=== PATIENT | male | born 1955 | race Caucasian/White ===

== ENCOUNTER 2017-11-25 07:45 | Outpatient (CLI) | payer OTHER | END 2017-11-25 07:46 | disposition home or self-care (01) | LOC: BICULT 07:45 | PROVIDERS: ATTEND Family Medicine | DX: R63.4 Abnormal weight loss (principal) | CPT/HCPCS: 76700 ==

== ENCOUNTER 2017-12-02 10:24 | Day surgery (SDC) | payer OTHER ==
[2017-12-01 14:41] VITALS: BMI 19.0
--- NOTE | 2017-12-01 22:51 | HP ---
DATE OF ADMISSION: 12/02/2017 HISTORY OF PRESENT ILLNESS: This is a 62-year-old male referred to me for unexplained weight loss. The patient has weighed 156 pounds a few months ago and his weight is down to 136 pounds in the last couple of months. The patient has good appetite and eats very well. He has no abdominal pain, no n ausea or vomiting. No history of dysphagia. No history of fever, night sweats. The patient has had a colonoscopy in 2010 and had 2 polyps removed. The patient was advised to come back for a followup colonoscopy, but patient did not come back to me. The patient comes in for EGD and a colonoscopy, b ecause of unexplained weight loss and also history of colon polyp. ALLERGIES: PENICILLIN. SOCIAL HISTORY: The patient smokes one-half packet of cigarettes per day. He drinks a glass of wine nightly. PAST MEDICAL HISTORY: 1. Chronic low back pain. 2. Mild dementia. 3. Colon polyp. 4. Cataracts. 5. Prostatic hypertrophy. 6. Hyperlipidemia. PHYSICAL EXAMINATION: GENERAL: Appears comfortable. VITAL SIGNS: Pulse is 70, blood pressure 120/70. HEENT: Conjunctivae clear. CARDIOVASCULAR AND LUNGS: Within normal limits. ABDOMEN: Soft to palpate. Abdomen is nontender. There is no organomegaly or masses. EXTREMITIES: Reveal no edema. ADMITTING DIAGNOSES: 1. Unexplained weight loss. 2. Colon polypectomy, 2010. PLAN: EGD and colonoscopy.
--- NOTE | 2017-12-02 12:49 | OP ---
DATE OF PROCEDURE: 12/02/2017 SURGEON: Fortino Layton M.D. OPERATIVE PROCEDURE: Colonoscopy with biopsy. PREOPERATIVE DIAGNOSES: A 62-year-old male with a history of colon polyps, presents with w eight loss of unknown etiology. The patient undergoing colonoscopy. POSTOPERATIVE DIAGNOSES: 1. Sessile transverse colon polyp. 2. Large hemorrhoids. 3. Tortuous, redundant colon. PROCEDURE IN DETAIL: The patient was placed on his left lateral position and was given sedation by A nesthesia Department. A rectal exam was done before the scope was advanced into the rectum. No lesi on felt on rectal exam. A Pentax video colonoscope was introduced into the rectum advanced all the w ay to the cecum. The patient has a redundant colon. The mucosa appears normal throughout the colon. The appendiceal orifice, no pathology seen. The ascending colon, hepatic flexure, and transverse c olon, no lesions seen. He did have a small polyp in the transverse colon, removed. The splenic flex ure, descending colon, and sigmoid colon, no pathology. Rectum showed large hemorrhoids.
--- NOTE | 2017-12-02 20:16 | OP ---
DATE OF PROCEDURE: 12/02/2017 OPERATIVE PROCEDURE: Esophagogastroduodenoscopy with biopsy. PREOPERATIVE DIAGNOSIS: Unexplained weight loss of 22 pounds. The patient has no specific GI symptoms. POSTOPERATIVE DIAGNOSES: 1. Irregular Z-line. 2. He has shallow ulcer in the gastric antrum which is healing. 3. Normal duodenum. PROCEDURE IN DETAIL: The patient was placed on his left lateral position after given sedation by Anesthesia Department. A Pentax video gastroscope under direct vision was passed down the oropharynx, passed the GE junction into the stomach and subsequently into the descending duodenum. The esophageal mucosa appeared normal. The Z-line was irregular. Biopsies were obtained in the area. The fundus and cardia, no pathology seen. The gastric antrum shows a shallow ulceration which is healing. The insulin angularis, no pathology seen. The duodenal bulb, descending duodenum, no pathology seen. Biopsy obtained of gastric antrum and gastric body. The stomach was decompressed and the scope removed. DISCHARGE PLANNING: This is a 62-year-old male who came for EGD and colonoscopy because of unexplained weight loss and also a history of colon polyp. EGD showed irregular Z-line and has a shallow ulcer in gastric antrum. The colonoscopy showed a small polyp over the transverse colon_. Overall, the endoscopic examination failed to show any lesion to explain the weight loss. The plan is to obtain an abdominal CAT scan in the near future. [facility]
== END 2017-12-02 13:05 | disposition home or self-care (01) ==
LOC: SDC 10:24
PROVIDERS: ATTEND Internal Medicine Gastroenterology
PROC: 0DBL8ZX Excision of Transverse Colon, Via Natural or Artificial Opening Endoscopic, Diagnostic (ICD-10-PCS; principal; 2017-12-02)
PROC: 0DB68ZX Excision of Stomach, Via Natural or Artificial Opening Endoscopic, Diagnostic (ICD-10-PCS; principal; 2017-12-02)
DX: R63.4 Abnormal weight loss (principal); K63.5 Polyp of colon; Q43.8 Other specified congenital malformations of intestine; K64.9 Unspecified hemorrhoids; K22.70 Barrett's esophagus without dysplasia; K31.9 Disease of stomach and duodenum, unspecified; M54.5 Low back pain; F17.210 Nicotine dependence, cigarettes, uncomplicated; N40.0 Benign prostatic hyperplasia without lower urinary tract symptoms; E78.5 Hyperlipidemia, unspecified; G30.9 Alzheimer's disease, unspecified; F02.80 Dementia in other diseases classified elsewhere, unspecified severity, without behavioral disturbance, psychotic disturbance, mood disturbance, and anxiety; M19.90 Unspecified osteoarthritis, unspecified site; G89.4 Chronic pain syndrome; M41.9 Scoliosis, unspecified; F41.9 Anxiety disorder, unspecified; Z79.82 Long term (current) use of aspirin; Z79.899 Other long term (current) drug therapy; Z88.0 Allergy status to penicillin; Z88.2 Allergy status to sulfonamides; Z87.19 Personal history of other diseases of the digestive system
CPT/HCPCS: 88305; 88312; 88313

== ENCOUNTER 2018-01-01 08:59 | Outpatient (CLI) | payer OTHER ==
[2018-01-01] MEDS ORDERED: Iopamidol 370 76% 100 ML VIAL ONE (14:30)
== END 2018-01-01 09:00 | disposition home or self-care (01) ==
LOC: BICCT 08:59
PROVIDERS: ATTEND Internal Medicine Gastroenterology
DX: R63.4 Abnormal weight loss (principal)
CPT/HCPCS: 74177

== ENCOUNTER 2018-05-20 14:05 | Outpatient (CLI) | payer OTHER | END 2018-05-20 14:06 | disposition home or self-care (01) | LOC: BICCT 14:05 | PROVIDERS: ATTEND Family Medicine | DX: H53.2 Diplopia (principal) | CPT/HCPCS: 70450 ==

== ENCOUNTER 2019-01-20 13:06 | Outpatient (CLI) | payer MEDICARE ==
--- NOTE | 2019-01-20 14:31 | CT ---
CT pulmonary lung scan without IV contrast INDICATION: Lung cancer screening protocol; nicotine dependence;personal history of smoking COMPARISON: None FINDINGS: LUNGS: Nodules\mass: No suspicious nodule demonstrated. Emphysema: Mild Additional findings: There is aneurysmal dilatation of the ascending aorta measuring 4.5 cm. There is aneurysmal dilatation of the aortic arch measuring 3.4 cm. There is ectasia of the descending thoracic aorta measuring 2.9 cm. There are coronary artery and thoracic aortic calcifications. Mediastinum: No lymphadenopathy. Upper abdomen: No abnormality. Osseous structures: No acute abnormality.. IMPRESSION: Lung-RADS Category 1: Negative- Continue annual screening with LDCT in 12 months. Category S: Aneurysmal dilatation of the thoracic aorta. Dedicated CTA of the thorax is recommended f or additional evaluation. Mild emphysema. Category C: Not applicable.
== END 2019-01-20 13:07 | disposition home or self-care (01) ==
LOC: CT 13:06
PROVIDERS: ATTEND Family Medicine
DX: F17.210 Nicotine dependence, cigarettes, uncomplicated (principal); I77.810 Thoracic aortic ectasia; J43.9 Emphysema, unspecified
CPT/HCPCS: G0297

== ENCOUNTER 2019-02-07 14:58 | Outpatient (CLI) | payer MEDICARE ==
--- NOTE | 2019-02-07 16:53 | MRI ---
MRI Upper Ext Jt Rt WO Con History: [m25.511 acute pain of right shoulder.] Comparison: None. Findings: Biceps tendon: No normal intra-articular biceps tendon is appreciated. Intertubercular groo ve appears vacant. Labrum: High-grade tearing of the superior labrum as well as tear extending to the anterior superior and posterior superior labrum. Rotator cuff: Full-thickness full width subscapularis tendon tear of the footprint retracted medial t o the glenohumeral joint. There is thinning and attenuation of the supraspinatus tendon without a full-thickness rupture. There is a full-thickness tear of the anterior margin of the supraspinatus te ndon near the tendon suture anchors measuring 5 mm in AP dimension with a 1 cm gap. Bones: Prior subacromial decompression. Normal glenoid version. Mild sclerosis of the glenoid anteroi nferiorly as well as superiorly. Muscles: Greater than 75% atrophy of the subscapularis. No significant to the supraspinatus or infraspinatus m uscles. Normal bulk of the deltoid. Soft tissues: Moderate subacromial/subdeltoid bursa effusion. Impression: 1. Full-thickness rupture the subscapularis tendon from the footprint retracted medial to the glenohu meral joint with greater than 75% atrophy. 2. Full-thickness perforation of the anterior fibers infraspinatus tendon near the tendon suture anch or measuring 5 mm in AP dimension with a 1 cm gap. Extensive superior labral tearing. 4. Absent intra-articular biceps tendon. 5. Mild elevation of the humeral head with respect to the glenoid with humeral head/neck osteophyte f ormation.
== END 2019-02-07 14:59 | disposition home or self-care (01) ==
LOC: BICMRI 14:58
PROVIDERS: ATTEND Orthopaedic Surgery
DX: M25.511 Pain in right shoulder (principal); S46.811A Strain of other muscles, fascia and tendons at shoulder and upper arm level, right arm, initial encounter; S43.431A Superior glenoid labrum lesion of right shoulder, initial encounter

== ENCOUNTER 2019-04-19 13:00 | Inpatient (IN) | payer MEDICARE ==
[2019-04-19 13:32] VITALS: BMI 18.3
[2019-04-21] MEDS ORDERED: Phenylephrine HCL 10 MG/ML VIAL ONE (06:07)
[2019-04-21] MEDS ORDERED: Lidocaine 2% Jelly 5 ML TUBE ONE (06:07)
[2019-04-21] MEDS ORDERED: Sodium Chloride 0.9% 100 ML ONE (06:27)
[2019-04-21] MEDS ORDERED: Clindamycin/D5W 600 mg/50 ml Premix Bag ONE (06:27)
[2019-04-21] MEDS ORDERED: Tranexamic Acid 1,000 MG/10 ML VIAL ONE (06:27)
[2019-04-21] MEDS ORDERED: Midazolam HCl 2 mg/2 ml Vial ONE (06:49)
[2019-04-21] MEDS ORDERED: Fentanyl 100 MCG/2 ML VIAL ONE (06:49)
[2019-04-21] MEDS ORDERED: ceFAZolin Sodium (SDC) 2 GM/100 ML BAG ONE (06:51)
[2019-04-21] MEDS ORDERED: Scopolamine 1.5 mg/72 hour Patch ONE (07:11)
[2019-04-21] MEDS ORDERED: Zolpidem Tartrate 5 MG TAB PO PRN ×2 (08:03→09:57)
[2019-04-21] MEDS ORDERED: HYDROcodone/Acetaminophen 10/325 mg Tablet PO PRN ×2 (08:03)
[2019-04-21] MEDS ORDERED: Ondansetron PF 4 MG/2 ML Vial IVP PRN ×2 (08:03→09:57)
[2019-04-21] MEDS ORDERED: Fentanyl 100 MCG/2 ML VIAL SLOW IVP PRN (08:03)
[2019-04-21] MEDS ORDERED: Promethazine HCl 25 MG/ML VIAL IM PRN (08:03)
[2019-04-21] MEDS ORDERED: Ropivacaine 0.2% 550 ML 550 ML NERVE BLCK SCH (08:03)
[2019-04-21] MEDS ORDERED: traMADol HCl 50 MG TAB PO PRN ×2 (08:03)
[2019-04-21] MEDS ORDERED: Ketorolac Tromethamine 30 MG/ML VIAL IVP PRN ×2 (08:03→12:00)
[2019-04-21] MEDS ORDERED: Acetaminophen 325 MG TAB PO PRN (09:57)
[2019-04-21] MEDS ORDERED: diphenhydrAMINE 50 MG CAP PO PRN (09:57)
[2019-04-21] MEDS ORDERED: Methocarbamol 500 MG TAB PO PRN (09:57)
[2019-04-21] MEDS ORDERED: Methocarbamol 1 GM/10 ML VIAL SLOW IVP PRN (09:57)
[2019-04-21] MEDS ORDERED: Bisacodyl 10 MG SUPP PR PRN (09:57)
[2019-04-21] MEDS ORDERED: Ondansetron ODT 4 MG TAB PO PRN (09:57)
[2019-04-21] MEDS ORDERED: Milk Of Magnesia 30 ML UDCUP PO PRN (09:57)
[2019-04-21] MEDS ORDERED: oxyCODONE/Acetaminophen 5 mg/325 mg Tablet PO PRN (09:57)
[2019-04-21] MEDS ORDERED: diphenhydrAMINE 50 MG/ML VIAL ONE (10:18)
--- NOTE | 2019-04-21 10:50 | RAD ---
EXAM: 2 views of the right shoulder HISTORY: Right shoulder arthroplasty COMPARISON: None FINDINGS: The patient is status post right shoulder arthroplasty without perihardware lucency or fra cture. Air in the soft tissues and overlying skin rose are from recent surgery.. The visualized thorax is unremarkable. IMPRESSION: Status post right shoulder arthroplasty without evidence of complication.
[2019-04-21] MEDS: Famotidine 20 MG TAB PO SCH ×2 (12:09→20:27)
[2019-04-21] MEDS: oxyCODONE/Acetaminophen 5 mg/325 mg Tablet PO PRN ×2 (13:31→20:26)
[2019-04-21] MEDS ORDERED: Vancomycin HCl 1 GM in Premix Bag 1 BAG IVPB SCH ×2 (15:00→19:00)
[2019-04-21] MEDS: CEFAZOLIN 2 GM, IV Admixture Fee-Chemo 1 UNITS in Sodium Chloride 0.9% 100 ML IVPB SCH ×2 (15:09→23:49)
[2019-04-21] MEDS ORDERED: Atorvastatin Calcium 10 MG TAB PO SCH (21:00)
[2019-04-21] MEDS ORDERED: Aspirin 81 mg Enteric Coated Tablet PO SCH (21:00)
[2019-04-21] MEDS ORDERED: Donepezil HCl 10 MG TAB PO SCH (21:00)
[2019-04-22 03:18] VITALS: TEMP 98.5
[2019-04-22 08:15] VITALS: BP 110/63
[2019-04-22] MEDS: Famotidine 20 MG TAB PO SCH (08:25)
--- NOTE | 2019-04-22 13:58 | OP ---
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 POSTOPERATIVE DIAGNOSIS: Right full-thickness subscapularis tear shoulder osteoarthritis. PROCEDURE PERFORMED: Right reverse total shoulder arthroplasty. PUBLIC SAFETY OFFICER: Deborah Foster PA-C. ANESTHESIOLOGIST: Artem Balbuena MD. ANESTHESIA: The patient received general endotracheal intubation with interscalene block. ESTIMATED BLOOD LOSS: 250 mL. IMPLANTS: A Tornier 29 mm baseplate, two locking and two nonlocking screws. A 36 mm centered lateralized sphere, stem 5A, 127.5-degree, tray 0, high offset, 9 mm poly, 9 mm C7.5 degree. ANTIBIOTICS: Ancef 2 g, vancomycin 1 g, and TXA 1 g. COMPLICATIONS: None. HISTORY OF PRESENT ILLNESS: Mr. Luis is a pleasant 63-year-old male, who presents with left shoulder pain. The patient has a previous history of a right rotator cuff repair. The patient had pain with overhead activities. MRI evidence showed a high-grade tear, near-complete tear of the subscapularis, glenohumeral arthritis, and infraspinatus tearing. I discussed with the patient given the subscap tear, his only option was a reverse shoulder arthroplasty. I discussed the risks and benefits of surgery to include pain, scar, bleeding, infection, damage to vital structures, decreased range of motion and strength, nonunion, fracture above or below stems, failure of implants long-term, notching, loss of life or limb. The patient understood the risks and benefits and elected to proceed. DESCRIPTION OF PROCEDURE: Time-out was performed designating the patient's right upper extremity as the operative site based on site, consents, and marking. After time-out, the patient had an incision to the deltopectoral interval. We took the vein and took it laterally, cauterized its feeders, came down and took a portion of the pack, came down onto the humerus after we found the space in the conjoined in the scarring underneath the deltoid. We started down on the biceps and came down, we only found a scar plane, which was almost like remnant capsule pseudoscar, but did not find any muscle attached to the patient's bare lesser tuberosity. We came into the interval, exposed the neck, brought the head into position, cut for an A cut, broached, cut down, drilled, and placed our starting opening awl. We went up to a 7 to 8 size center of the canal, used the cutting tool to cut at 20 degrees of rotation. We then cut down, removed, and broached up to a size 4 stem, placed hub cap over and we placed our Roula and Bankart in position. Did 360 degree release of the labrum, placed our baseplate at the bottom edge of the glenoid. We drilled with inferior angle. I then used the cleaning tool to clean the inferior surface of the bone being happy with exposure and overall alignment of the bone. We then opened our larger hole, placed our baseplate, drilled anterior, posterior, superiorly, and inferiorly placing our compression screws anterior and posterior and locking screws superiorly and inferiorly. We trialed and looked different baseplates, only placed a lateralized 36 mm sphere. We went back to the humerus and moved up to size 5A stem placed into position, reamed down, reduced the shoulder, had good overall range of motion without any signs of impingement. We placed a slightly larger poly with a 9 mm poly. With an abduction, external rotation, and a slight mid lift-off, which improved that. We placed our final implants. We placed #5 Ethibond through around the stem. We then used this scar plane to sew the tissue plane in front of the joint and also closed the rotator interval and closed in its entirety. After we washed the joint thoroughly, we used #2 Ethibonds. We closed the deltopectoral interval with #0 Vicryl, closed subcu with 2-0, and skin with rose. The patient will be elbow, wrist, and hand motion. He will be followed inhouse postop to see how he does. Job ID: [id number] [facility]
[2019-04-28] MEDS ORDERED: PATIENT'S HOME MEDICATION TOP SCH (09:00)
== END 2019-04-22 09:25 | disposition home or self-care (01) | DRG 483 ==
LOC: SURG A 04-21 05:51
PROVIDERS: ADMIT Orthopaedic Surgery; ATTEND Orthopaedic Surgery
PROC: 0RRJ00Z Replacement of Right Shoulder Joint with Reverse Ball and Socket Synthetic Substitute, Open Approach (ICD-10-PCS; principal; 2019-04-21)
DX: M19.011 Primary osteoarthritis, right shoulder (principal); M75.101 Unspecified rotator cuff tear or rupture of right shoulder, not specified as traumatic; M40.204 Unspecified kyphosis, thoracic region; I70.0 Atherosclerosis of aorta; Z88.0 Allergy status to penicillin; Z88.2 Allergy status to sulfonamides
CPT/HCPCS: 71046; 80048; 85025; 85610; 87081; 93005; 93010; A4306; J0690; J1200; J1885; J2250; J2370; J2795; J3010; J3370; J3490

== ENCOUNTER 2019-04-19 13:09 | Outpatient (CLI) | payer MEDICARE ==
[2019-04-19 14:48] LABS: #Basophils 0.1 thou/uL (0.0-0.2); #Eosinphils 0.1 thou/uL (0.0-0.7); #Lymphocytes 1.5 thou/uL (1.20-3.40); #Monocytes 0.5 thou/uL (0.11-0.59); #Neutrophils 3.7 thou/uL (1.40-6.50); %Basophils 1.2 % (0.0-1.0); %Eosinophils 1.6 % (0.0-10.0); %Lymphocytes 26.1 % (21.0-51.0); %Monocytes 7.9 % (0.0-10.0); %Neutrophils 63.4 % (42.0-75.0); Hemoglobin 12.8 g/dL (14.0-18.0); Mean Corpuscular HGB CONC 32.2 g/dL (32.0-36.0); Mean Corpuscular Volume 99.5 fL (78.0-98.0); Mean Platelet Volume 8.1 fL (7.4-10.4); Platelet Count 208 thou/uL (130-400); RBC Distribution Width 11.1 % (11.5-14.5); Red Blood Cell (RBC) Count 4.01 mill/uL (4.70-6.10); White Blood Cell (WBC) Count 5.8 thou/uL (4.8-10.8)
[2019-04-19 14:55] LABS: Prothrombin Time 13.2 SEC (12.0-14.7)
--- NOTE | 2019-04-19 14:59 | RAD ---
EXAM: CHEST PA AND LATERAL: 04/19/19 HISTORY: Preoperative evaluation. Borderline hyperinflation. Heart size is normal. Moderate kyphosis of the thoracic spine. No confluen t pneumonia, overt edema, or pleural effusion. IMPRESSION: No acute intrathoracic disease. Mild hyperinflation and thoracic spine kyphosis. Atherosclerosis of t he aorta. No significant new process. POS: [facility]
[2019-04-19 15:07] LABS: Anion Gap 10 mmol/L (10-20); BUN (Urea Nitrogen) 28 mg/dL (8.4-25.7); Calc. Creatinine Clearance 0 mL/min (70-130); Calcium 9.7 mg/dL (7.8-10.44); Carbon Dioxide 29 mmol/L (23-31); Chloride 104 mmol/L (98-107); Estimated GFR-MDRD Greater than 90; Glucose 95 mg/dL (80-115); Potassium 4.2 mmol/L (3.5-5.1); Sodium 139 mmol/L (136-145)
--- NOTE | 2019-04-22 08:02 | EKG ---
Test Reason : Blood Pressure : / mmHG Vent. Rate : 079 BPM Atrial Rate : 079 BPM P-R Int : 186 ms QRS Dur : 092 ms QT Int : 374 ms P-R-T Axes : 058 -69 063 degrees QTc Int : 428 ms Sinus rhythm with premature atrial contractions Incomplete right bundle branch block Left anterior fascicular block Abnormal ECG When compared with ECG of 02-FEB-1995 21:14, Incomplete right bundle branch block is now Present Confirmed by DR. Selena CABRALES ([id number]) on 04/22/2019 8:01:02 AM Referred By: ALESSANDRO Confirmed By:DR. Selena CABRALES
== END 2019-04-19 13:10 | disposition home or self-care (01) ==
LOC: LABBT 13:09
PROVIDERS: ATTEND Orthopaedic Surgery
DX: Z01.818 Encounter for other preprocedural examination (principal); M75.101 Unspecified rotator cuff tear or rupture of right shoulder, not specified as traumatic; M40.204 Unspecified kyphosis, thoracic region; I70.0 Atherosclerosis of aorta
CPT/HCPCS: 71046; 80048; 85025; 85610; 87081; 93005; 93010

== ENCOUNTER 2019-09-14 08:24 | Outpatient (CLI) | payer MEDICARE ==
--- NOTE | 2019-09-14 13:53 | NM ---
Nuclear medicine Mirlande scan: DATE: 09/14/2019 HISTORY: 64-year-old male with Parkinson's disease. TECHNIQUE: Premedication with 130 mg Potassium iodide one hour prior to injection of radiopharmaceutical. 4.5 mCi of I-123 Ioflupane. 3 hours later, SPECT imaging of brain in axial plane. FINDINGS: There is symmetrical uptake in the bilateral caudate heads. There is significantly decreased uptake in the putamen bilaterally. IMPRESSION: Positive for Parkinson's.
== END 2019-09-14 08:25 | disposition home or self-care (01) ==
LOC: NM 08:24
PROVIDERS: ATTEND Psychiatry & Neurology Neurology
DX: F03.90 Unspecified dementia, unspecified severity, without behavioral disturbance, psychotic disturbance, mood disturbance, and anxiety (principal); G20 Parkinson's disease
CPT/HCPCS: 78607; A9584

== ENCOUNTER 2020-03-27 08:21 | Outpatient (CLI) | payer MEDICARE ==
--- NOTE | 2020-03-27 09:36 | CT ---
CT pulmonary lung scan without IV contrast INDICATION: Lung cancer screening protocol; 64-year-old male with history of 3 cigarettes per day and history of smoking since 27 years of age COMPARISON: Prior CT pulmonary lung scan dated January 20, 2019. FINDINGS: LUNGS: Nodules\mass: No suspicious nodule demonstrated. Emphysema: Mild Additional findings: Aneurysmal dilatation the ascending aorta is stable measuring 4.5 cm. Mild aneur ysmal dilatation of the aortic arch to 3 cm stable. There are coronary artery and thoracic aortic calcifications. Mediastinum: No lymphadenopathy. Upper abdomen: No abnormality. Osseous structures: No acute abnormality.. IMPRESSION: Lung-RADS Category 1: Negative- Continue annual screening with LDCT in 12 months. Category S: Stable ascending aortic aneurysm of 4.5 cm. Mild aneurysmal dilatation the aortic arch. C oronary artery and thoracic aortic calcifications. Mild emphysema. Category C: Not applicable.
== END 2020-03-27 08:22 | disposition home or self-care (01) ==
LOC: BICCT 08:21
PROVIDERS: ATTEND Family Medicine
DX: Z12.2 Encounter for screening for malignant neoplasm of respiratory organs (principal); F17.210 Nicotine dependence, cigarettes, uncomplicated; I71.2 Thoracic aortic aneurysm, without rupture; I70.0 Atherosclerosis of aorta; I25.10 Atherosclerotic heart disease of native coronary artery without angina pectoris; J43.9 Emphysema, unspecified
CPT/HCPCS: G0297

== ENCOUNTER 2020-11-02 14:44 | Inpatient (IN) | payer MEDICARE ==
--- NOTE | 2020-11-02 15:47 | RAD ---
3 views right shoulder: 11/02/2020 COMPARISON: None HISTORY: Shoulder pain FINDINGS: There is a shoulder arthroplasty present, stable in appearance when compared to prior radio graphs performed 10/30/2020. No widening of the acromioclavicular or coracoclavicular interspace. No displaced fracture or evidence of dislocation is seen. IMPRESSION: Stable postoperative changes as detailed above.
--- NOTE | 2020-11-02 16:50 | RAD ---
RIGHT HIP 2 VIEWS: Date: 11/02/2020 HISTORY: Injury. FINDINGS: There is a subcapital fracture on the right without significant displacement. IMPRESSION: Subcapital fracture right hip. POS: [facility]
--- NOTE | 2020-11-02 16:51 | RAD ---
RIGHT ELBOW 4 VIEWS: Date: 11/02/2020 HISTORY: Pain. FINDINGS: Joint spaces are preserved. No joint effusion. No fracture or malalignment. IMPRESSION: No radiographic abnormality of the right elbow. POS: [facility]
[2020-11-02 17:10] LABS: #Eosinphils 0.2 thou/uL (0.0-0.7); #Lymphocytes 1.2 thou/uL (1.20-3.40); #Monocytes 0.8 thou/uL (0.11-0.59); #Neutrophils 6.5 thou/uL (1.40-6.50); %Basophils 0.4 % (0.0-1.0); %Eosinophils 1.8 % (0.0-10.0); %Lymphocytes 13.5 % (21.0-51.0); %Monocytes 9.1 % (0.0-10.0); %Neutrophils 75.2 % (42.0-75.0); Hemoglobin 12.2 g/dL (14.0-18.0); Mean Corpuscular Hemoglobin 32.8 pg (27.0-31.0); Mean Corpuscular Volume 99.4 fL (78.0-98.0); Platelet Count 186 thou/uL (130-400); RBC Distribution Width 10.8 % (11.5-14.5); Red Blood Cell (RBC) Count 3.72 mill/uL (4.70-6.10); White Blood Cell (WBC) Count 8.7 thou/uL (4.8-10.8)
[2020-11-02] MEDS ORDERED: Tobramycin Sulfate 1.2 GM VIAL ONE (17:37)
[2020-11-02 17:38] LABS: Anion Gap 10 mmol/L (10-20); BUN (Urea Nitrogen) 26 mg/dL (8.4-25.7); Calc. Creatinine Clearance 0 mL/min (70-130); Calcium 9.1 mg/dL (7.8-10.44); Carbon Dioxide 29 mmol/L (23-31); Chloride 108 mmol/L (98-107); Glucose 98 mg/dL (80-115); Magnesium 2.2 mg/dL (1.6-2.6); Phosphorus 2.8 mg/dL (2.3-4.7); Potassium 4.9 mmol/L (3.5-5.1); Sodium 142 mmol/L (136-145)
--- NOTE | 2020-11-02 17:38 | CON ---
DATE OF CONSULTATION: 11/02/2020 This is Deborah Foster PA-C dictating a report for Pramod Pink MD. REQUESTING PHYSICIAN: Oskar Wolf MD CONSULTING PHYSICIAN: Pramod Pink MD REASON FOR CONSULTATION: Fall with right hip fracture. HISTORY OF PRESENT ILLNESS: This is a 65-year-old male, who was in Dr. Lynch's office this morning, receiving spinal ablation when he went to use the bathroom and fell. He then was able to get up and go home from the doctor's office. Upon returning home, he was experiencing increasing pain to the right hip and the inability to walk. They presented to our emergency facility for further evaluation of hip pain as well as right elbow and right shoulder pain. Workup in the emergency department revealed a right subcapital fracture. We have been consulted for this reason. The patient is well known to our service. He states that he also has right shoulder pain. He has had a total shoulder replacement done on the right. He states he has been having some pain lately and has seen Dr. Pink recently in the clinic. He reports his pain is about the same as it has been in the last couple of weeks. He denies any numbness or tingling. PAST MEDICAL HISTORY: Significant for; 1. Parkinson's. 2. Early dementia. 3. Chronic back pain. 4. . 5. Aortic aneurysm. 6. Nam's esophagus. PAST SURGICAL HISTORY: 1. Back surgery. 2. Spinal fusion. 3. Right shoulder replacement. 4. Spinal ablation. SOCIAL HISTORY: The patient lives at home with his . He smokes approximately 2 cigarettes a day. Denies any drug use. Drinks socially. He is an independent ambulator. ALLERGIES: PENICILLINS AND SULFA. REVIEW OF SYSTEMS: Ten-point review of systems conducted and otherwise negative except for stated above. PHYSICAL EXAMINATION: VITAL SIGNS: Shows current vital signs including a blood pressure of 104/69, pulse of 69, respiratory rate of 17, temperature 98.1, pain level of 6/10, O2 saturation of 100% on room air. GENERAL: The patient is awake and alert. He is in no apparent distress. His is present at bedside here in the emergency department. He answers all questions appropriately. HEENT: Head is normocephalic and atraumatic. NECK: Supple. Trachea midline. Breathing is nonlabored. EXTREMITIES: Evaluation of the right upper extremity shows a well-healed anterior shoulder scar. There is no obvious deformity to the shoulder. No tenderness to palpation. He is able to forward flex. He is also able to flex and extend at the elbow and pronate and supinate. No signs of trauma or deformity to the elbow. Distal neurovascular status intact on the right upper extremity. On the right lower extremity, there is no shortening or external rotation noted on exam today. Skin is intact overlying the hip. Range of motion evaluation not assessed secondary to current pain status. The patient is able to move his toes and his ankle. Distal neurovascular status intact on the right lower extremity. Left upper and left lower extremities both evaluated and no signs of trauma or deformity. He is able to move these extremities without any difficulty. RADIOGRAPHIC IMAGING: Reviewed today including views of the patient's right hip demonstrate a subcapital femoral neck fracture with slight impaction and valgus deformity. Right elbow and right shoulder films also reviewed. Right elbow films show no acute findings. Right shoulder films show evidence of a shoulder arthroplasty. This is a total shoulder. No signs of periprosthetic fracture and no evidence for dislocation. ASSESSMENT: Status post fall with right subcapital femoral neck fracture. PLAN: At this time, the patient states he ate around 11:00 a.m. today. We will get him admitted to the Trauma Service. They will make sure he is comfortable overnight, we will plan for surgery in the morning. He will be n.p.o. after midnight. Surgery will include a partial versus a total hip replacement. Dr. Pink will discuss this further with the patient and his family in the morning. They do understand the risks and benefits of either procedure. They are amenable to this plan of care. We will plan to proceed in the morning. Job ID: [id number]
[2020-11-02] MEDS ORDERED: Dextrose 50% Abboject 50 ML SYRINGE SLOW IVP PRN (18:00)
[2020-11-02] MEDS ORDERED: Ondansetron PF 4 MG/2 ML Vial IVP PRN (18:00)
[2020-11-02] MEDS ORDERED: Ondansetron ODT 4 MG TAB PO PRN (18:00)
[2020-11-02] MEDS ORDERED: traMADol HCl 50 MG TAB PO PRN ×2 (18:00)
[2020-11-02] MEDS ORDERED: Morphine 2 MG/ML VIAL SLOW IVP PRN (18:00)
[2020-11-02] MEDS ORDERED: Dextrose 5% in Water 1,000 ML IV PRN (18:00)
[2020-11-02] MEDS ORDERED: Cyclobenzaprine 10 MG TAB PO PRN (18:00)
[2020-11-02] MEDS ORDERED: hydrALAZINE 20 MG/ML VIAL SLOW IVP PRN (18:00)
--- NOTE | 2020-11-02 18:06 | PDOC.H&P ---
- History & Physical Encounter Time: 11/02/20 Encounter Time: 18:04 CC: Right hip pain HPI 65 y/o male with pmhx dementia, Parkinson and HLD was at his orthopedic office this morning for a spinal ablation. The patient got up to use the bathroom at 10:00am. He lost his balance and fell down and landed on the right hip and head. The patient drove home, he found it difficult to walk. His drove him into the hospital. He states his right shoulder and right elbow pain have gradually decreased but his right hip pain is severe and not going away. He is not able to walk normally at this time. Patient denies headache, dizziness, light sensitivity ROS Patient denies SOB, chest pain, Pmhx Parkinson, Dementia, Chronic descending aortic aneurysm Medication carbidopa-levodopa 25 mg-100 mg,onepezil Strength - 10 mg ,memantine Strength - 10 mg ,Butrans Strength - 10 mcg/hour,oxyCODONE,Strength - 5 mg-325 mg :atorvastatin 10 mg ,omeprazoleStrength - 20 mg Allergies Penicilling, sulfa Family History unknown Surgical history Right reverse shoulder repair, spinal fussion Physical Exam Vitals BP 104/69, RR 17, temp 98 pain 6/10 O@ 98 General Resting comfortably in bed Head NC/AT Tenderness to palpation over right occipital bone Lungs speaking full sentence no acute distress Cardiac: regula rate an rhythm Abdomen soft, non-tender Extremities Equal strength bilat UE. Right elbow small abrasion sensation intact upper and lower extremities.Limited ROM RLE no edema or ecchymosis over the right hip Neuro A&OX3 Assessment 65 y/o male with pmhx dementia, Parkinson and HLD ground level fall in this morning in doctors office bathroom on right hip, elbow and head. Hip x- ray subcapital fracture. CT head pending. Shoulder and elbow X-rays negative. Plan 1Admit to trauma floor 2.NPO midnight, iV fluids. OR tomorrow, 3.CT head without contrast 4Pain regimen 5 AM labs 6 PT/OT evaluate after surgery 7Dispo pending.
--- NOTE | 2020-11-02 18:51 | CT ---
CT BRAIN NONCONTRAST: DATE: 11/02/2020 HISTORY: 65-year-old male status post acute head trauma from fall FINDINGS: There is no evidence of acute intra-axial or extra-axial hemorrhage. There is no midline shift or any other mass effect. There is no extra-axial fluid collection. There is no evidence of obstructive hydrocephalus. There is a 1 cm osteolytic lesion at the right frontal bone, which is unchanged compar ed to previous CT of 05/20/2018. Calvarium is otherwise intact. IMPRESSION: No acute intracranial findings.
[2020-11-02] MEDS ORDERED: oxyCODONE/Acetaminophen 5 mg/325 mg Tablet PO PRN (20:53)
[2020-11-02 21:45] VITALS: BMI 42.0
[2020-11-02] MEDS: Acetaminophen 325 MG TAB PO SCH (21:55)
[2020-11-02] MEDS: Donepezil HCl 10 MG TAB PO SCH (21:58)
[2020-11-02] MEDS: Ibuprofen 600 MG TAB PO SCH (21:58)
[2020-11-02] MEDS: Famotidine 20 MG TAB PO SCH (21:58)
[2020-11-02] MEDS: Atorvastatin Calcium 10 MG TAB PO SCH (21:58)
[2020-11-03] MEDS: Acetaminophen 325 MG TAB PO SCH ×5 (00:06→23:16)
[2020-11-03] MEDS: Sodium Chloride 0.9% 1,000 ML IV SCH ×2 (00:06→09:16)
[2020-11-03 04:55] LABS: SARS-CoV-2 PCR by NAA Not Detected (NotDetected)
[2020-11-03 05:37] LABS: #Eosinphils 0.1 thou/uL (0.0-0.7); #Lymphocytes 1.3 thou/uL (1.20-3.40); #Monocytes 0.7 thou/uL (0.11-0.59); %Basophils 0.4 % (0.0-1.0); %Eosinophils 0.9 % (0.0-10.0); %Monocytes 8.9 % (0.0-10.0); %Neutrophils 73.8 % (42.0-75.0); Hemoglobin 11.8 g/dL (14.0-18.0); Mean Corpuscular HGB CONC 32.1 g/dL (32.0-36.0); Mean Corpuscular Hemoglobin 32.1 pg (27.0-31.0); Mean Platelet Volume 7.9 fL (7.4-10.4); Platelet Count 188 thou/uL (130-400); RBC Distribution Width 10.9 % (11.5-14.5); Red Blood Cell (RBC) Count 3.67 mill/uL (4.70-6.10); White Blood Cell (WBC) Count 8.1 thou/uL (4.8-10.8)
[2020-11-03] MEDS: Ibuprofen 600 MG TAB PO SCH ×3 (06:02→20:34)
[2020-11-03] MEDS: Carbidopa/Levodopa 25-100 mg Tablet PO SCH ×4 (06:02→20:34)
[2020-11-03 06:03] LABS: Phosphorus 2.9 mg/dL (2.3-4.7)
[2020-11-03 06:07] LABS: Anion Gap 13 mmol/L (10-20); BUN (Urea Nitrogen) 23 mg/dL (8.4-25.7); Calc. Creatinine Clearance 187 mL/min (70-130); Calcium 8.6 mg/dL (7.8-10.44); Carbon Dioxide 25 mmol/L (23-31); Chloride 108 mmol/L (98-107); Glucose 94 mg/dL (80-115); Potassium 4.2 mmol/L (3.5-5.1); Sodium 142 mmol/L (136-145)
[2020-11-03] MEDS ORDERED: Tobramycin Sulfate 1.2 GM VIAL ONE (08:00)
[2020-11-03] MEDS: Famotidine 20 MG TAB PO SCH ×3 (09:16→20:35)
[2020-11-03] MEDS ORDERED: Tranexamic Acid 1,000 MG/10 ML VIAL ONE (09:58)
[2020-11-03] MEDS ORDERED: Sodium Chloride 0.9% 100 ML ONE (09:58)
[2020-11-03] MEDS ORDERED: Fentanyl 100 MCG/2 ML VIAL ONE ×2 (10:17→12:43)
[2020-11-03] MEDS ORDERED: Rocuronium Bromide 10 MG/ML (10ML VIAL) ONE (10:59)
[2020-11-03] MEDS ORDERED: PHENYLEPHRINE-NS 100 MCG/ML 10 ML SYRINGE ONE (10:59)
[2020-11-03] MEDS ORDERED: Ketorolac Tromethamine 30 MG/ML VIAL ONE (10:59)
[2020-11-03] MEDS ORDERED: Dexamethasone 20 MG/5 ML VIAL ONE (10:59)
[2020-11-03] MEDS ORDERED: ePHEDrine 50 MG/ML VIAL ONE (10:59)
[2020-11-03] MEDS ORDERED: Lidocaine 1% PF 5 ML VIAL ONE (10:59)
[2020-11-03] MEDS ORDERED: Glycopyrrolate 0.2 MG/ML 5 ML SYRINGE ONE (10:59)
[2020-11-03] MEDS ORDERED: PROPOFOL 200 MG/20 ML VIAL ONE (10:59)
[2020-11-03] MEDS ORDERED: Ondansetron PF 4 MG/2 ML Vial ONE (10:59)
[2020-11-03] MEDS ORDERED: SUGAMMADEX SODIUM 200 MG/2 ML VIAL ONE (12:29)
[2020-11-03] MEDS ORDERED: PACU-Morphine 4MG/ML VIAL SLOW IVP PRN (13:04)
[2020-11-03] MEDS ORDERED: HYDROmorphone 2 MG/ML VIAL SLOW IVP PRN (13:04)
[2020-11-03] MEDS ORDERED: Promethazine HCl 25 MG/ML VIAL IM PRN (13:04)
[2020-11-03] MEDS ORDERED: Ondansetron HCl/PF 4 MG/2 ML Vial IVP PRN (13:04)
[2020-11-03] MEDS ORDERED: HYDROmorphone 0.5 MG/0.5 ML SYRINGE ONE (13:05)
--- NOTE | 2020-11-03 13:30 | OP ---
DATE OF PROCEDURE: 11/03/2020 PREOPERATIVE DIAGNOSIS: Right femoral neck fracture. POSTOPERATIVE DIAGNOSIS: Right femoral neck fracture. PROCEDURE PERFORMED: Right hip hemiarthroplasty. ACCORDION REPAIRER: Rafael Lloyd PA-C ANESTHESIA: The patient received general. ESTIMATED BLOOD LOSS: Less than 100 mL. TOURNIQUET TIME: Zero. ANTIBIOTICS: Ancef 2 g, TXA 1 g. IMPLANTS: The patient had a size 5 accolade II neck stem, a 53 Unitrax head of prosthesis and a standard neck adjustment sleeve. COMPLICATIONS: None. HISTORY OF PRESENT ILLNESS: Mr. Luis is a 65-year-old male, who presents after a fall with right femoral neck fracture. The patient has Parkinson's. The patient is dealing with decrease in mobility and has a history of chronic pain, and I discussed with the family the risks and benefits of right hip hemiarthroplasty. I have discussed hemiarthroplasty versus total hip. I discussed the risks and benefits of both. The patient elected for right hip hemiarthroplasty. I discussed with him the risks and benefits of the surgery to include pain, scar, bleeding, infection, damage to vital structures, decreased range of motion and strength, continued pain despite surgical intervention, need for further surgeries, further procedures, fracture above or below the stem, loss of life or limb, The patient understood the risks and benefits of the procedure and elected to proceed. DESCRIPTION OF PROCEDURE: Time-out was performed designating the right lower extremity as the operative site based on site marking. The patient was placed in lateral position with bony prominences well padded, had a lateral incision down through skin, down to the IT band. The gluteus medius and minimus were peeled to expose the patient's femoral neck. We T'd the capsule, exposed the femoral neck, dislocated the neck, cut our neck and placed our corkscrew into the femoral head, removed the femoral head and sized it to 53. We then began broaching, broached up to a size 5, reduced, had a good overall reduction and position of the stem. We then removed the stem, washed, placed our final #[address] with our Unitrax standard [address] The patient was in good position in overall alignment and reduction. We then closed using #5 passed through bone tunnels and sewed the gluteus medius and minimus back. Closed #2 and closed the remainder of the tenotomy and closed the IT band with 2 Stratafix, 0 Stratafix, 2-0 Stratafix, and glue. My shop assistant helped with positioning, incision, retraction, dislocation, implantation, closure and positioning to the bed. The patient will be weightbearing as tolerated. The patient will follow up with me after 24-hour antibiotics may need to skilled upon discharge. Job ID: [id number] [facility]
[2020-11-03] MEDS: CEFAZOLIN 2 GM in Premix Bag 1 BAG IVPB SCH (18:02)
[2020-11-03] MEDS: Donepezil HCl 10 MG TAB PO SCH (20:34)
[2020-11-03] MEDS: Atorvastatin Calcium 10 MG TAB PO SCH (20:34)
[2020-11-04] MEDS: CEFAZOLIN 2 GM in Premix Bag 1 BAG IVPB SCH (03:10)
[2020-11-04] MEDS: oxyCODONE/Acetaminophen 5 mg/325 mg Tablet PO PRN ×2 (04:50→20:16)
[2020-11-04] MEDS: Ibuprofen 600 MG TAB PO SCH ×3 (05:17→22:01)
[2020-11-04] MEDS: Acetaminophen 325 MG TAB PO SCH ×3 (05:17→18:25)
[2020-11-04] MEDS: Carbidopa/Levodopa 25-100 mg Tablet PO SCH ×4 (05:18→20:16)
[2020-11-04 06:10] LABS: #Lymphocytes 1.4 thou/uL (1.20-3.40); #Monocytes 1.1 thou/uL (0.11-0.59); #Neutrophils 9.4 thou/uL (1.40-6.50); %Basophils 0.3 % (0.0-1.0); %Lymphocytes 11.4 % (21.0-51.0); %Neutrophils 79.2 % (42.0-75.0); Hemoglobin 10.5 g/dL (14.0-18.0); Mean Corpuscular HGB CONC 33.2 g/dL (32.0-36.0); Mean Corpuscular Hemoglobin 32.8 pg (27.0-31.0); Mean Platelet Volume 7.9 fL (7.4-10.4); Platelet Count 171 thou/uL (130-400); RBC Distribution Width 10.7 % (11.5-14.5); White Blood Cell (WBC) Count 11.9 thou/uL (4.8-10.8)
[2020-11-04] MEDS: Famotidine 20 MG TAB PO SCH ×2 (08:58→20:16)
[2020-11-04] MEDS: Polyethylene Glycol 3350 17 GM Packet PO SCH (08:59)
[2020-11-04] MEDS: Senokot S 8.6-50 MG TAB PO SCH ×2 (08:59→20:16)
--- NOTE | 2020-11-04 09:14 | PRG ---
DATE OF SERVICE: 11/03/2020 HISTORY OF PRESENT ILLNESS: Mr. Leandro Luis is a pleasant 65-year-old male with history of Parkinson's, well known to my service, previous right shoulder replacement. The patient is currently in bed after ground level fall yesterday. The patient is currently resting in bed. His is at bedside. PHYSICAL EXAMINATION: VITAL SIGNS: 97.5, 82, 18, 97%, 107/61. GENERAL: Alert and oriented male, in no acute distress. Rigidity noted. EXTREMITIES: The patient has pain with internal and external rotation of his hip. He will dorsiflex, plantar flex, and has gross sensation intact to his right lower extremity. RADIOGRAPHS: 1. Show right subcapital femoral neck fracture and valgus impaction. 2. Right elbow x-rays are negative. Right shoulder shows no changes. IMPRESSION: Right subcapital femoral neck fracture. ASSESSMENT AND PLAN: I discussed with the family risks and benefits of hemiarthroplasty versus total hip arthroplasty. I feel like he would benefit from either procedure. I discussed the risks and benefits of both. Given the patient's ambulatory status and his current diagnosis of Parkinson's, I felt like the hemiarthroplasty was the correct decision. Patient and family discussed and elected for right hemiarthroplasty. The patient will be taken to the OR for a hemiarthroplasty, will receive TXA. We discussed risks and benefits including life and limb, discussed risk of fracture, damage to vital structures. The patient and family understand these risks and benefits and elected to proceed. He will be taken to the operating suite for right hemiarthroplasty. Job ID: [id number]
--- NOTE | 2020-11-04 11:18 | RAD ---
AP PELVIS AND RIGHT HIP 1 VIEW: Date: 11/04/2020 HISTORY: Postop. FINDINGS/IMPRESSION: There are recent postop changes of right hip arthroplasty in good position and alignment, new since 0 11/02/2020. POS: OFF
--- NOTE | 2020-11-04 12:35 | PRG ---
DATE OF SERVICE: 11/04/2020 SUBJECTIVE: The patient is hospital day 2 status post ground level fall. He is postop day 1, status post right hip hemiarthroplasty. Overnight, the patient partially pulled his Marquez catheter out. The nurses were able to return it. They did notice some hematuria initially, and again this morning, there was noted to be some hematuria, though it was much less. The patient reports no difficulty urinating at this time. He is tolerating a diet and his pain is controlled. At the time of my visit, he was starting to work with Physical Therapy. PHYSICAL EXAMINATION: VITAL SIGNS: Temperature is 98.7, heart rate 79, blood pressure 127/78, respirations 18, oxygen saturation 100% on room air. GENERAL: The patient is resting comfortably in bed. Again, he is just started his evaluation by physical therapy. He is awake, alert, conversant, appropriate. [place] Coma Scale is 15. HEENT: Unremarkable. LUNGS: Clear to auscultation with good inspiratory and expiratory effort. HEART: Regular rate and rhythm. ABDOMEN: Soft, nontender with active bowel sounds. EXTREMITIES: Neurovascularly intact x4. LABORATORY FINDINGS: The last lab value should be platelets of 171. RADIOGRAPHS: There are no radiographs reviewed this morning. ASSESSMENT AND PLAN: 1. Status post ground level fall hospital day 2. 2. Status post right hip hemiarthroplasty, postop day 1. 3. Status post dislodged Marquez accidentally by the patient resulting in hematuria, improving. 4. History of Parkinson's. PLAN: Plan will be to continue supportive care. Encourage physical and occupational therapy. The patient's home regimen for his chronic pain has been resumed, which he reports is helped immensely. We will continue to monitor his urine output and quality. We will notify Urology as needed. We have also discussed with the patient and his spouse placement. Job ID: [id number]
[2020-11-04] MEDS: Atorvastatin Calcium 10 MG TAB PO SCH (20:16)
[2020-11-04] MEDS: Donepezil HCl 10 MG TAB PO SCH (20:16)
[2020-11-05] MEDS: Acetaminophen 325 MG TAB PO SCH ×4 (05:43→17:17)
[2020-11-05] MEDS: Ibuprofen 600 MG TAB PO SCH ×3 (05:48→22:25)
[2020-11-05] MEDS: Carbidopa/Levodopa 25-100 mg Tablet PO SCH ×4 (05:48→20:18)
[2020-11-05] MEDS ORDERED: Enoxaparin Sodium 40 MG/0.4 ML SYRINGE SC SCH (09:00)
[2020-11-05] MEDS: Famotidine 20 MG TAB PO SCH ×2 (10:12→20:20)
[2020-11-05] MEDS: Polyethylene Glycol 3350 17 GM Packet PO SCH (10:12)
[2020-11-05] MEDS: Senokot S 8.6-50 MG TAB PO SCH ×2 (10:13→20:20)
[2020-11-05] MEDS: oxyCODONE/Acetaminophen 5 mg/325 mg Tablet PO PRN ×2 (15:11→22:25)
[2020-11-05] MEDS: BUPRENORPHINE TOP SCH (17:17)
[2020-11-05] MEDS: Donepezil HCl 10 MG TAB PO SCH (20:18)
[2020-11-05] MEDS: Atorvastatin Calcium 10 MG TAB PO SCH (20:19)
[2020-11-05] MEDS: Aspirin 81 mg Enteric Coated Tablet PO SCH (20:20)
--- NOTE | 2020-11-05 20:24 | RAD ---
2 views of the pelvis: 11/05/2020 COMPARISON: 11/04/2020 HISTORY: Fall FINDINGS: There is a stable right hip arthroplasty. The pelvic ring appears intact. There is no widen ing of the sacroiliac joints or the pubic symphysis. No acute fracture or dislocation. IMPRESSION: No acute osseous abnormality.
[2020-11-06] MEDS: Acetaminophen 325 MG TAB PO SCH ×4 (01:11→20:07)
[2020-11-06] MEDS: Carbidopa/Levodopa 25-100 mg Tablet PO SCH ×4 (05:12→21:22)
[2020-11-06] MEDS: Ibuprofen 600 MG TAB PO SCH ×3 (05:12→21:22)
--- NOTE | 2020-11-06 05:53 | PRG ---
DATE OF SERVICE: 11/05/2020 SUBJECTIVE: The patient is hospital day 3, status post ground level fall. He is postop day 2, status post right hip hemiarthroplasty. Overnight, the patient had no reported events. He is tolerating a diet and his pain is controlled with his regimen. He has begun to work with physical therapy well. was at bedside this morning inquiring about placement options for patient. OBJECTIVE: VITAL SIGNS: Blood pressure 104/61, pulse 100, respirations 12, temperature 98.1 Fahrenheit, O2 saturation 96% on room air. GENERAL: The patient was sitting up next to bed in chair with at bedside. He is awake, alert, conversant, appropriate. HEENT: Unremarkable. LUNGS: Clear to auscultation with good inspiratory and expiratory effort. HEART: Regular rate and rhythm. ABDOMEN: Soft, nontender with active bowel sounds. EXTREMITIES: Neurovascularly intact x4. LABORATORY FINDINGS: No labs were performed today. RADIOGRAPHS: No radiographs were reviewed this morning. ASSESSMENT: 1. Status post ground level fall, hospital day 3. 2. Status post right hip hemiarthroplasty, POD 2. 3. Status post dislodged Marquez accidentally by the patient resulting in hematuria on 11/04/2020. 4. History of Parkinson's. 5. Hyperlipidemia. 6. Dementia. PLAN: Plan will be to continue supportive care. Encourage physical and occupational therapy. The patient's home regimen for chronic pain had been resumed. Discuss with the patient and spouse about placement. Case Management is to come and see the patient and today to discuss options for placement. We will recommend rehab placement at this time, pending insurance approval. Job ID: [id number] MTDD
[2020-11-06] MEDS: Senokot S 8.6-50 MG TAB PO SCH ×2 (08:44→21:21)
[2020-11-06] MEDS: Aspirin 81 mg Enteric Coated Tablet PO SCH ×2 (08:44→21:21)
[2020-11-06] MEDS: Polyethylene Glycol 3350 17 GM Packet PO SCH (08:45)
[2020-11-06 11:37] LABS: Band 2 % (5-11); Hemoglobin 10.4 g/dL (14.0-18.0); Lymphocytes 10 % (21-51); MDiff Complete? YES; Mean Corpuscular HGB CONC 33.4 g/dL (32.0-36.0); Mean Corpuscular Hemoglobin 33.5 pg (27.0-31.0); Mean Platelet Volume 7.7 fL (7.4-10.4); Monocytes 6 % (0-10); Neutrophil 81 % (42-75); Platelet Count 183 thou/uL (130-400); Polychromasia SLIGHT = 2-3 cells (100X) (0-2/hpf); RBC Distribution Width 10.8 % (11.5-14.5); White Blood Cell (WBC) Count 10.5 thou/uL (4.8-10.8)
--- NOTE | 2020-11-06 12:03 | RAD ---
PORTABLE CHEST 1 VIEW: DATE: 11/06/2020. TIME: 10:14 AM. HISTORY: Shortness of breath. COMPARISON: None. FINDINGS: The heart size is normal. The aorta is tortuous. The lungs are expanded without lobar consolidation , pneumothoraces, or pleural effusions. There are postop changes of right shoulder arthroplasty. IMPRESSION: No radiographic evidence of acute cardiopulmonary process. POS: OFF
--- NOTE | 2020-11-06 14:14 | MRI ---
MRI BRAIN WITHOUT CONTRAST: HISTORY: Declining mental mental status CORRELATION: CT scan from 11/02/2020, 05/20/2018. FINDINGS: Exam is limited due to motion artifact. No restricted diffusion is seen. The ventricular size is appropriate and the basilar cisterns are pat ent. No evidence of acute infarct, hemorrhage, midline shift or abnormal extra-axial fluid collections is seen. The visualized paranasal sinuses and mastoid air cells are well-aerated. There is T2 signal in the 1 cm osteolytic lesion of the right frontal bone seen on the CT scans of 11/02/2020 and 05/20/2018 IMPRESSION: No evidence of acute intracranial process.
--- NOTE | 2020-11-06 14:15 | PRG ---
DATE OF SERVICE: 11/06/2020 SUBJECTIVE: The patient is hospital day 4, status post ground level fall. He is postop day 3, status post right hip hemiarthroplasty. Overnight, the patient reportedly had a fall. The patient was trying to get out of bed, unsupervised when he fell. A pelvis x-ray was done after this, which showed no acute findings. was at bedside with Dr. Bee and the rest of the Trauma Team on rounds, was discussing that the patient's mental status she has been concerned that his mental status/alertness has not been what it had been in the past 3 days. Today, he is having increasing trouble swallowing and removing secretions and clearing his throat per the and has a cough which is concerning to her. Patient is tolerating p.o. diet well. OBJECTIVE: VITAL SIGNS: Blood pressure 117/81, pulse 102, respirations 16, O2 saturation 97 on room air, temperature 98.6. GENERAL: The patient was sitting in bed with at bedside. The patient is awake, alert. GCS 15 However, he does not know the president or the current year. HEENT: Unremarkable. LUNGS: Clear to auscultation. HEART: Regular rate and rhythm. ABDOMEN: Soft, nontender. Active bowel sounds. EXTREMITIES: Neurovascularly intact x4. PSYCH: Pt is conversant. He knows where he is. He knows what city we are in. LABORATORY FINDINGS: No labs were performed today. RADIOGRAPHS: No radiographs were reviewed this morning. ASSESSMENT: 1. Status post ground level fall, hospital day 4. 2. Status post right hip hemiarthroplasty, postoperative day 3: continue with current pain management 3. Parkinson's Disease: is concerned about patient's change in mental status since admission, will order brain MRI and follow up 4. Dementia: continue medications 5. Dysphagia/dysphonia: speech has been consulted for this for patient, per , patient's dysphagia has also changed upon admission. Per speech, he has not had aspiration events. Serial bedside swallows for patient if aspiration events arise. Regular texture solids, with thin liquids, and aspiration precautions 5. Hyperlipidemia: continue medications 6. Gastroesophageal reflux disease: continue medications 7. Productive cough: CTAB on PE. Order CXR and CBC pending. Dr. Bee saw patient at bedside with rest of trauma team. Plan discussed with trauma team. Job ID: [id number] [facility]
[2020-11-06] MEDS: Donepezil HCl 10 MG TAB PO SCH (21:22)
[2020-11-06] MEDS: Atorvastatin Calcium 10 MG TAB PO SCH (21:22)
[2020-11-07] MEDS: Acetaminophen 325 MG TAB PO SCH ×5 (00:08→23:51)
[2020-11-07] MEDS: Ibuprofen 600 MG TAB PO SCH ×3 (06:31→21:58)
[2020-11-07] MEDS: Carbidopa/Levodopa 25-100 mg Tablet PO SCH ×4 (06:32→19:52)
[2020-11-07] MEDS: Aspirin 81 mg Enteric Coated Tablet PO SCH ×2 (09:06→21:56)
[2020-11-07] MEDS: Polyethylene Glycol 3350 17 GM Packet PO SCH (09:06)
[2020-11-07] MEDS: Senokot S 8.6-50 MG TAB PO SCH ×2 (09:06→21:56)
--- NOTE | 2020-11-07 12:41 | PRG ---
DATE OF SERVICE: 11/07/2020 SUBJECTIVE: The patient is status post ground level fall, post op day #4, status post right hip hemiarthroplasty. Overnight, the patient had no acute events. The patient is tolerating p.o. diet well. No aspiration events were noted overnight. OBJECTIVE: VITAL SIGNS: Blood pressure 123/76, heart rate 85, temperature 97.8, respirations 14, and O2 saturation 98% on room air. GENERAL: Pt in no acute distress. GCS 15. LUNGS: Clear to auscultation. HEART: Regular rate and rhythm. No murmurs, rubs, or gallops noted. ABDOMEN: Soft, nontender. Active bowel sounds. EXTREMITIES: Neurovascular intact x4. PSYCH: The patient is conversant, watching TV. He knows where he is. He knows what city we are in. LABORATORY FINDINGS: Reviewed a complete metabolic panel today, which had no significant findings. RADIOGRAPHS: No radiographs were reviewed this morning. ASSESSMENT/PLAN: 1. Status post ground level fall, hospital day #5. 2. Status post right hip hemiarthroplasty, postop day #4. Continue with current pain management. 3. Parkinson disease. Yesterday, a brain MRI was done due to the patient's change in mental status per the . He had no acute findings. Will consult Neurology today based on concerns for mental status changes. 4. Dementia. Continue medications. 5. Dysphagia, dystonia. Speech has been consulted for the patient per . He has not had any aspiration events here If aspiration events arise, solids and thin liquids and aspiration precautions. 6. Hyperlipidemia. Continue medications. 7. Gastroesophageal reflux disease. Continue medication. Patient seen by Dr. Bee and rest of trauma team. Plan discussed with team. [facility] ID: [id number] [facility]
--- NOTE | 2020-11-07 13:02 | CON ---
NEUROLOGY CONSULTATION DATE OF CONSULTATION: 11/05/2020 REASON FOR CONSULTATION: Altered mental status. HISTORY OF PRESENT ILLNESS: Mr. Luis is a 65-year-old male with medical history significant for dementia, Parkinson disease, hyperlipidemia, consulted for increased confusion from baseline after surgery. He was seen at Orthopedic office on 11/02/2020 for spinal ablation. The patient got up in the morning of 11/02/2020 and lost his balance and landed on his right hip and hit his head. He has problem walking, so he presented to the emergency room and surgery was done. Per patient's , since the surgery, he has increased agitation and his memory is worse than the baseline. REVIEW OF SYSTEMS: Unobtainable due to the patient's mental status. PAST MEDICAL HISTORY: 1. Parkinson's. 2. Dementia. 3. Chronic descending aortic aneurysm. FAMILY HISTORY: No significant family history. PAST SURGICAL HISTORY: 1. Right reverse shoulder repair. 2. Spinal fusion. ALLERGIES: PENICILLIN AND SULFA. MEDICATIONS: 1. Carbidopa/levodopa 25 mg/100 mg. 2. Donepezil. 3. Memantine. 4. Butrans. 5. Oxycodone. 6. Omeprazole. 7. Atorvastatin. PHYSICAL EXAMINATION: VITAL SIGNS: Blood pressure 100/60, pulse 80, respiratory rate 18. GENERAL: Alert and awake male, in no acute distress. CVS: Regular rate and rhythm. CHEST: Clear. ABDOMEN: Soft. NECK: Supple. NEUROLOGIC: Mental status; the patient is alert and oriented to person and place, but not to year or month. Follows commands intermittently. Cranial nerves 2 through 12 intact. Motor; muscle tone and bulk are normal, moving all 4 extremities equally and symmetrically. Sensory; intact. Cerebellar; finger-nose testing slow, but intact. Gait; deferred due to the patient's safety reason. He does have cogwheel rigidity and mild tremor. DATA REVIEWED: MRI Brain negative. ASSESSMENT AND PLAN: Mr. Leandro Luis is a 65-year-old male with medical history significant for dementia, Parkinson disease, hyperlipidemia, status post fall, and status post right hip hemiarthroplasty, consulted for change in the baseline mental status. MRI of the brain reviewed, which was negative for acute intracranial pathology. Consider EEG to rule out cortical irritability and to evaluate for confusion. Neuro checks every 4 hours. Continue home medications. Continue medical management per primary team. The plan was discussed in detail with the at bedside that any stress on the body can cause worsening of baseline mental status and also because he hit his head. He may have postconcussive syndrome with irritability and memory issues, which will take some time to resolve on its own. Further recommendations will depend on the results of the testing. We will continue to follow. Thank you for the consult. Job ID: [id number] MTDD
--- NOTE | 2020-11-07 15:43 | PDOC.EEG ---
Neurology EEG Report - Report Report: This EEG was performed using 24 channel [employer] video EEG machine with 24 disc electrodes. This was an extended 2 hours 8 minutes of inpatient video EEG recording. Digital analysis of the EEG was done for spike and seizure detection which revealed no abnormalities. Background: The posterior background rhythm is not observed. Hyperventilation: Not performed. Photic Stimulation: No significant response. Sleep: Drowsiness and sleep are observed. EEG Diagnosis: Occasional theta activity seen during the recording Clinical Interpretation: This EEG is consistent with mild , generalized , nonspecific cerebral dysfunction.
[2020-11-07] MEDS: Atorvastatin Calcium 10 MG TAB PO SCH (21:56)
[2020-11-07] MEDS: Donepezil HCl 10 MG TAB PO SCH (21:56)
[2020-11-08] MEDS: Ibuprofen 600 MG TAB PO SCH ×3 (05:11→22:08)
[2020-11-08] MEDS: Carbidopa/Levodopa 25-100 mg Tablet PO SCH ×4 (05:11→20:31)
[2020-11-08] MEDS: Acetaminophen 325 MG TAB PO SCH ×4 (05:12→23:56)
[2020-11-08] MEDS: Polyethylene Glycol 3350 17 GM Packet PO SCH (09:15)
[2020-11-08] MEDS: Senokot S 8.6-50 MG TAB PO SCH ×2 (09:15→20:31)
[2020-11-08] MEDS: Aspirin 81 mg Enteric Coated Tablet PO SCH ×2 (09:15→20:31)
--- NOTE | 2020-11-08 13:54 | PRG ---
DATE OF SERVICE: 11/08/2020 SUBJECTIVE: The patient is status post ground-level fall, postoperative day 5 status post right hip hemiarthroplasty. Overnight, the patient had no acute events. He is tolerating p.o. diet well. OBJECTIVE: VITAL SIGNS: Blood pressure 109/64, heart rate 68, respirations 14, O2 saturation 96% on room air, and temperature 98.1. GENERAL: The patient is in no acute distress. GCS 15. LUNGS: Clear to auscultation. HEART: Regular rate and rhythm. No murmurs, rubs, or gallops noted. ABDOMEN: Soft and nontender. Active bowel sounds. LABORATORY FINDINGS: Labs are not reviewed this morning. No radiographs were reviewed this morning. ASSESSMENT AND PLAN: 1. Status post ground-level fall, hospital day 6. 2. Status post right hip hemiarthroplasty, postoperative day 5. Continue with current pain management. 3. Parkinson disease. Yesterday, Neurology was consulted. EEG was done, which had no acute findings, showed global cerebral dysfunction. Neuro checks every 4 hours based on Neurology recommendations. 4. Dementia. Continue current medications. 5. Dysphagia and dystonia. Speech is being consulted. If any aspiration events arise, can do serial bedside swallow eval. However, this has not been a problem for the patient. 6. Hyperlipidemia. Continue medications. 7. Gastroesophageal reflux disease. Continue medications. Peer to peer was done today by trauma team based on insurance originally denying the patient for rehab. Based on conversation, rehab will re-review the patient's information and will let the team know about decision for the patient. Job ID: [id number]
[2020-11-08] MEDS: Donepezil HCl 10 MG TAB PO SCH (20:31)
[2020-11-08] MEDS: Atorvastatin Calcium 10 MG TAB PO SCH (20:31)
[2020-11-09] MEDS: Ibuprofen 600 MG TAB PO SCH ×3 (05:45→23:09)
[2020-11-09] MEDS: Carbidopa/Levodopa 25-100 mg Tablet PO SCH ×4 (05:45→20:34)
[2020-11-09] MEDS: Acetaminophen 325 MG TAB PO SCH ×4 (05:45→23:09)
[2020-11-09] MEDS: Polyethylene Glycol 3350 17 GM Packet PO SCH (08:17)
[2020-11-09] MEDS: Aspirin 81 mg Enteric Coated Tablet PO SCH ×2 (08:17→20:34)
[2020-11-09] MEDS: Senokot S 8.6-50 MG TAB PO SCH ×2 (08:18→20:34)
--- NOTE | 2020-11-09 15:10 | PRG ---
DATE OF SERVICE: 11/09/2020 SUBJECTIVE: A 65-year-old male patient, status post fall, right femoral neck fracture. The patient is recovering well in the hospital. Delirium resolves, the patient is sitting upright in bed, working with PT every day. The patient has tolerated regular diet and voiding spontaneously. Case management is working with the patient . PHYSICAL EXAMINATION: VITAL SIGNS: Temperature 98, pulse 80, respiratory rate 14, O2 100 on room air, blood pressure 124/80. GENERAL: Sitting up in bed, alert, and oriented. HEAD: Normocephalic, atraumatic. CARDIAC: Regular rate and rhythm. PULMONARY: Breathing on room air. No acute distress. No accessory muscle use. ABDOMEN: Soft, nontender, distended. EXTREMITIES: Equal pulses bilaterally. PT and DPs +2, actively moving lower extremities and upper extremities. NEUROLOGIC: A and O x3. ASSESSMENT: A 65-year-old male with past medical history of dementia, Parkinson's, and hyperlipidemia, status post ground level fall. Postop day 6. Neurology is following the patient. The patient is recovering well on the surgical floor. Labs within normal limits. PLAN: Continue current pain regimen. Regular diet. Discontinue IV fluids. Disposition, pending to rehab. The patient's case has been complicated due to he fall in the hospital, the pt want him to go to [facility] however his insurance doesn't cover him. The patient wants the hospital to pay for to go to rehab hospital. Peer to peer was attempted,but the patient was rejected. The patient will remain in the hospital. No further acceptance of rehab. Job ID: [id number] MTDD
[2020-11-09] MEDS: Donepezil HCl 10 MG TAB PO SCH (20:34)
[2020-11-09] MEDS: Atorvastatin Calcium 10 MG TAB PO SCH (20:34)
[2020-11-10] MEDS: Ibuprofen 600 MG TAB PO SCH ×3 (06:15→20:56)
[2020-11-10] MEDS: Carbidopa/Levodopa 25-100 mg Tablet PO SCH ×4 (06:15→20:55)
[2020-11-10] MEDS: Acetaminophen 325 MG TAB PO SCH ×4 (06:16→23:19)
[2020-11-10] MEDS: Polyethylene Glycol 3350 17 GM Packet PO SCH (08:11)
[2020-11-10] MEDS: Aspirin 81 mg Enteric Coated Tablet PO SCH ×2 (08:12→20:55)
[2020-11-10] MEDS: Senokot S 8.6-50 MG TAB PO SCH ×2 (08:12→20:55)
--- NOTE | 2020-11-10 12:41 | PRG ---
DATE OF SERVICE: 11/10/2020 SUBJECTIVE: The patient was seen this morning during rounds. He was sitting up in a chair with no signs of acute distress. He reported pain is well controlled. He is working with physical therapy and walking in the hallway with a walker. OBJECTIVE: VITAL SIGNS: Temperature 98.1, pulse 61, respirations 14, oxygen saturation 100% on room air, blood pressure 106/66. GENERAL: Well-appearing elderly male, sitting up in chair with no signs of acute distress. PULMONARY: Equal chest rise and fall. Clear breath sounds bilaterally. No signs of acute respiratory distress. CARDIAC: Regular rate and rhythm. GI: Abdomen is soft, nontender, nondistended. EXTREMITIES: 2+ pulses in all extremities. Gross motor and sensation intact. No significant swelling noted. NEURO: GCS is 15. LABORATORY FINDINGS: There are no new laboratory findings to discuss. DIAGNOSTIC FINDINGS: There are no new diagnostic findings to discuss. ASSESSMENT: 1. Status post mechanical fall from standing. 2. Right femoral neck fracture. 3. Hematuria status post Marquez trauma, resolved. 4. History of Parkinson, dementia, descending aortic aneurysm, and chronic back pain. PLAN: Continue current diet and pain regimen. Continue physical and occupational therapy. Continue supportive care. The patient was denied to rehab. We are waiting for the family to determine a significant location. He is ready for discharge at this time. Job ID: [id number]
[2020-11-10] MEDS: Donepezil HCl 10 MG TAB PO SCH (20:55)
[2020-11-10] MEDS: Atorvastatin Calcium 10 MG TAB PO SCH (20:55)
[2020-11-11] MEDS: Ibuprofen 600 MG TAB PO SCH ×3 (05:24→23:53)
[2020-11-11] MEDS: Acetaminophen 325 MG TAB PO SCH ×4 (05:24→23:53)
[2020-11-11] MEDS: Carbidopa/Levodopa 25-100 mg Tablet PO SCH ×4 (05:24→20:47)
[2020-11-11] MEDS: Polyethylene Glycol 3350 17 GM Packet PO SCH (08:06)
[2020-11-11] MEDS: Senokot S 8.6-50 MG TAB PO SCH ×2 (08:06→20:47)
[2020-11-11] MEDS: Aspirin 81 mg Enteric Coated Tablet PO SCH ×2 (08:14→20:47)
--- NOTE | 2020-11-11 13:48 | PRG ---
DATE OF SERVICE: 11/11/2020 SUBJECTIVE: The patient was seen this morning during rounds. He was sitting up in a chair with no signs of acute distress. He reported he did not sleep well overnight because he was concerned about, where he was going to be discharged to and when. He does appear to be mildly confused today, which is not surprising since he did not sleep overnight. He is cooperative though and follows directions. OBJECTIVE: VITAL SIGNS: Temperature 98.3, pulse 89, respirations 14, oxygen saturation 96% on room air, blood pressure 139/81. GENERAL: Well-appearing elderly male, sitting up in chair with no signs of acute distress. PULMONARY: Equal chest rise and fall. No signs of acute respiratory distress. CARDIAC: Regular rate and rhythm. GI: Abdomen is soft, nontender, nondistended. EXTREMITIES: 2+ pulses in all extremities. Gross motor and sensation intact. No significant swelling noted. NEURO: GCS is 14 to 15-1 for occasional confusion. LABORATORY FINDINGS: There are no new laboratory findings to discuss. DIAGNOSTIC FINDINGS: There are no new diagnostic findings to discuss. ASSESSMENT: 1. Status post mechanical fall from standing. 2. Right femoral neck fracture, status post repair. 3. Hematuria, resolved. 4. History of Parkinson's, dementia, descending aortic aneurysm, and chronic back pain. PLAN: Continue current diet and pain regimen. Continue physical and occupational therapy. Continue supportive care. The patient is ready for discharge at this time. We are pending approval for skilled facility as a rehab facility was denied by insurance. Job ID: [id number]
--- NOTE | 2020-11-11 14:54 | RAD ---
AP PELVIS: History: Injury from a fall. Comparison: 11-05-2020 FINDINGS: Right total hip replacement. Post op laminectomy changes at L5-S1. No evidence for acute fracture or dislocation. IMPRESSION: No evidence for acute pelvic fracture. Total right hip replacement. Laminectomy changes at L5-S1. Sta ble from prior study. POS: RRE
[2020-11-11] MEDS: Atorvastatin Calcium 10 MG TAB PO SCH (20:47)
[2020-11-11] MEDS: Donepezil HCl 10 MG TAB PO SCH (20:47)
[2020-11-12] MEDS ORDERED: Ibuprofen 600 MG TAB ONE (05:43)
[2020-11-12] MEDS: Acetaminophen 325 MG TAB PO SCH ×4 (05:55→23:21)
[2020-11-12] MEDS ORDERED: Polyethylene Glycol 3350 17 GM Packet ONE (08:33)
[2020-11-12] MEDS ORDERED: Aspirin 81 mg Enteric Coated Tablet ONE (08:33)
[2020-11-12] MEDS ORDERED: Senokot S 8.6-50 MG TAB ONE (08:35)
[2020-11-12] MEDS ORDERED: Carbidopa/Levodopa 25-100 mg Tablet ONE ×2 (08:35→15:23)
[2020-11-12] MEDS ORDERED: BUPRENORPHINE TOP SCH (09:00)
[2020-11-12] MEDS: Aspirin 81 mg Enteric Coated Tablet PO SCH ×2 (10:12→21:02)
[2020-11-12] MEDS: Carbidopa/Levodopa 25-100 mg Tablet PO SCH ×4 (10:12→20:59)
[2020-11-12] MEDS: Senokot S 8.6-50 MG TAB PO SCH ×2 (10:12→21:02)
[2020-11-12] MEDS: Polyethylene Glycol 3350 17 GM Packet PO SCH (10:12)
[2020-11-12] MEDS ORDERED: Acetaminophen 325 MG TAB ONE (11:36)
--- NOTE | 2020-11-12 12:25 | PRG ---
DATE OF SERVICE: 11/12/2020 SUBJECTIVE: The patient remains on the surgical floor. He is status post ground level fall, in which he sustained a right femoral neck fracture. He has undergone repair of that. He is reportedly still just waiting for placement as of Thursday, his had not made a decision. Otherwise, he continues to do well. Of note, he has had other fall since being here in the hospital that fortunately have not resulted in any injuries. The patient is tolerating a diet. His pain is controlled and his bowel function has returned. He continues to work with physical and occupational therapy. PHYSICAL EXAMINATION: VITAL SIGNS: Temperature is 98.3, heart rate 83, blood pressure 122/72, respirations 16, and oxygen saturation 98% on room air. GENERAL: The patient is resting comfortably. Sitting in a chair at bedside. He is about to be moved back to his bed. He appears in no distress. He is conversant this morning. Nurses report is improved from yesterday. RESPIRATIONS: Show no signs of distress. There is equal rise and fall of his chest. EXTREMITIES: He is moving all of extremities without difficulty. LABORATORY DATA: There are no labs or radiographs to review this morning. ASSESSMENT: 1. Status post mechanical fall from standing. 2. Status post open reduction and internal fixation of right femoral neck fracture. 3. History of Parkinson dementia, aortic aneurysm, and chronic back pain. PLAN: Plan will be to continue encouraging physical and occupational therapy, supportive care and await placement decision. The patient was evaluated this morning with Dr. Wahl during rounds. Job ID: [id number]
[2020-11-12 14:56] LABS: #Eosinphils 0.1 thou/uL (0.0-0.7); #Lymphocytes 1.5 thou/uL (1.20-3.40); #Monocytes 0.9 thou/uL (0.11-0.59); %Basophils 0.3 % (0.0-1.0); %Eosinophils 1.1 % (0.0-10.0); %Lymphocytes 13.1 % (21.0-51.0); %Monocytes 7.8 % (0.0-10.0); %Neutrophils 77.6 % (42.0-75.0); Hemoglobin 10.1 g/dL (14.0-18.0); Mean Corpuscular HGB CONC 32.3 g/dL (32.0-36.0); Mean Corpuscular Hemoglobin 32.5 pg (27.0-31.0); Mean Platelet Volume 7.3 fL (7.4-10.4); Platelet Count 372 thou/uL (130-400); RBC Distribution Width 11.1 % (11.5-14.5); Red Blood Cell (RBC) Count 3.12 mill/uL (4.70-6.10); White Blood Cell (WBC) Count 11.6 thou/uL (4.8-10.8)
[2020-11-12 15:17] LABS: Anion Gap 15 mmol/L (10-20); BUN (Urea Nitrogen) 26 mg/dL (8.4-25.7); Calc. Creatinine Clearance 206 mL/min (70-130); Calcium 8.9 mg/dL (7.8-10.44); Carbon Dioxide 23 mmol/L (23-31); Chloride 107 mmol/L (98-107); Glucose 71 mg/dL (80-115); Magnesium 2.1 mg/dL (1.6-2.6); Phosphorus 2.9 mg/dL (2.3-4.7); Potassium 3.7 mmol/L (3.5-5.1); Sodium 141 mmol/L (136-145)
[2020-11-12] MEDS: Ibuprofen 600 MG TAB PO SCH ×3 (15:29→21:03)
[2020-11-12 16:21] LABS: Bacteria/HPF None Seen HPF (None Seen); Bilirubin Negative (Negative); Blood, Urine Negative (Negative); Clarity Clear (Clear); Glucose, Urine (Dipstick) Normal (Negative); Ketone, Urine Trace mg/dL (Negative); Leukocyte Negative Leu/uL (Negative); Nitrite Negative (Negative); Protein, Urine (Dipstick) 10 mg/dL (Neg-Trace); RBC/HPF 0-3 HPF (0-3); Specific Gravity, Urine 1.025 (1.002-1.036); Squamous Epithelial None Seen HPF (0-3); WBC/HPF 0-3 HPF (0-3); pH, Urine 6.5 (5.0-9.0)
[2020-11-12] MEDS: BUPRENORPHINE TOP SCH (16:46)
[2020-11-12] MEDS: Donepezil HCl 10 MG TAB PO SCH (21:00)
[2020-11-12] MEDS: Atorvastatin Calcium 10 MG TAB PO SCH (21:00)
[2020-11-13] MEDS: Ibuprofen 600 MG TAB PO SCH ×3 (05:28→20:55)
[2020-11-13] MEDS: Acetaminophen 325 MG TAB PO SCH ×4 (05:29→23:18)
[2020-11-13] MEDS: Carbidopa/Levodopa 25-100 mg Tablet PO SCH ×4 (05:29→20:54)
[2020-11-13] MEDS: Polyethylene Glycol 3350 17 GM Packet PO SCH (09:03)
[2020-11-13] MEDS: Senokot S 8.6-50 MG TAB PO SCH ×2 (09:03→20:55)
[2020-11-13] MEDS: Aspirin 81 mg Enteric Coated Tablet PO SCH ×2 (09:03→20:53)
--- NOTE | 2020-11-13 14:58 | PRG ---
DATE OF SERVICE: 11/13/2020 SUBJECTIVE: Patient was seen in the morning rounds. The patient is sitting up in chair, no falls overnight. The patient is A and O x2 this morning. Patient is ready to be discharged for rehab. The patient has been denied [facility], the patient's would like rehab to be covered by a hospital due to fall in [facility] facility. Patient's pain is well controlled and is working with physical therapy. OBJECTIVE: VITAL SIGNS: Temperature 98.1, pulse 74, respiratory rate 16, O2 saturation 100% on room air. Blood pressure 106/73. GENERAL: No acute distress, sitting up in bed chair. CARDIAC: Regular rate and rhythm. PULMONARY: No accessory muscle use. No acute distress. Speaking full sentences. GI: Abdomen is soft, nontender, nondistended. EXTREMITIES: +2 DP, PT bilateral. Sensation intact. Moving all extremities. NEURO: GCS 14 to 15 for occasional confusion. LABORATORY FINDINGS: No new lab findings. DIAGNOSTIC FINDINGS: No new diagnostic findings. ASSESSMENT: 1. Status post mechanical fall from standing. 2. Right femoral neck fracture status post repair. 3. Hematuria, resolved. 4. 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 PLAN: Continue diet and bowel regimen, plan for discharge to rehab when approved. We are pending approval for skilled facility. Rehab facility was denied by insurance. Job ID: [id number] MTDD
[2020-11-13] MEDS ORDERED: Carbidopa/Levodopa 25-100 mg Tablet ONE (15:02)
[2020-11-13] MEDS ORDERED: Ibuprofen 600 MG TAB ONE (15:05)
[2020-11-13] MEDS ORDERED: hydrALAZINE 20 MG/ML VIAL SLOW IVP PRN (15:07)
[2020-11-13] MEDS ORDERED: Ondansetron PF 4 MG/2 ML Vial IVP PRN (15:07)
[2020-11-13] MEDS ORDERED: Ondansetron ODT 4 MG TAB PO PRN (15:07)
[2020-11-13] MEDS ORDERED: Dextrose 50% Abboject 50 ML SYRINGE SLOW IVP PRN (15:07)
[2020-11-13] MEDS ORDERED: Cyclobenzaprine 10 MG TAB PO PRN (15:07)
[2020-11-13] MEDS ORDERED: oxyCODONE/Acetaminophen 5 mg/325 mg Tablet PO PRN (15:09)
[2020-11-13] MEDS: BUPRENORPHINE TOP SCH (15:38)
[2020-11-13] MEDS: Donepezil HCl 10 MG TAB PO SCH (20:54)
[2020-11-13] MEDS: Atorvastatin Calcium 10 MG TAB PO SCH (20:54)
[2020-11-14] MEDS: Acetaminophen 325 MG TAB PO SCH ×3 (05:39→19:19)
[2020-11-14] MEDS: Carbidopa/Levodopa 25-100 mg Tablet PO SCH ×4 (05:39→20:04)
[2020-11-14] MEDS: Ibuprofen 600 MG TAB PO SCH ×3 (05:40→21:57)
[2020-11-14] MEDS: Polyethylene Glycol 3350 17 GM Packet PO SCH (08:19)
[2020-11-14] MEDS: Senokot S 8.6-50 MG TAB PO SCH ×2 (08:19→20:04)
[2020-11-14] MEDS: Aspirin 81 mg Enteric Coated Tablet PO SCH ×2 (08:19→20:04)
--- NOTE | 2020-11-14 13:07 | PRG ---
DATE OF SERVICE: 11/14/2020 SUBJECTIVE: Mr. Luis is a 65-year-old male patient, seen during morning rounds, sitting up in the bed. The patient is A and O x2, not oriented towards the year. The patient continues to be medically stable for discharge. Working with the family to discharge the patient to rehab. Follow up with case management today. OBJECTIVE: VITAL SIGNS: Temperature 98, pulse 86, respiratory rate 14, O2 saturations 97, and blood pressure 19. GENERAL: No acute distress, sitting upright in bed. CARDIAC: Regular rate and rhythm. PULMONARY: Speaking full sentences. No accessory muscle use. GASTROINTESTINAL: Abdomen is soft, nontender, and nondistended. EXTREMITIES: Moving all extremities. Sensation intact grossly. NEURO: GCS 14, confused about the year today. LABORATORY DATA: No new lab findings. DIAGNOSTIC FINDINGS: No new diagnostic findings. ASSESSMENT: 1. Status post mechanical fall from standing. 2. Right femoral neck fracture, status post repair. 3. Hematuria , resolved. 4. History of Parkinson's dementia. 5. Chronic descending aortic aneurysm. PLAN: A 65-year-old male patient, status post right femoral neck fracture repair. The patient is medically clear for discharge. Discharge is complicated due to the patient fell in the hospital. Case management is aware of the case, is refusing to select a SNF or swing bed facility. is appealing to insurance. The pt wants the hospital to pay for the [facility]. The patient has seen Dr. Bee during morning rounds and agrees with the plan. Job ID: [id number] MTDD
[2020-11-14] MEDS: Donepezil HCl 10 MG TAB PO SCH (20:04)
[2020-11-14] MEDS: Atorvastatin Calcium 10 MG TAB PO SCH (20:05)
[2020-11-15] MEDS: Acetaminophen 325 MG TAB PO SCH ×4 (00:56→17:05)
[2020-11-15] MEDS: Ibuprofen 600 MG TAB PO SCH ×3 (05:59→22:43)
[2020-11-15] MEDS: Carbidopa/Levodopa 25-100 mg Tablet PO SCH ×4 (05:59→20:15)
[2020-11-15] MEDS: Polyethylene Glycol 3350 17 GM Packet PO SCH (08:39)
[2020-11-15] MEDS: Aspirin 81 mg Enteric Coated Tablet PO SCH ×2 (08:39→20:15)
[2020-11-15] MEDS: Senokot S 8.6-50 MG TAB PO SCH ×2 (08:39→20:14)
[2020-11-15 15:43] LABS: #Eosinphils 0.1 thou/uL (0.0-0.7); #Lymphocytes 1.5 thou/uL (1.20-3.40); #Monocytes 0.8 thou/uL (0.11-0.59); #Neutrophils 9.1 thou/uL (1.40-6.50); %Basophils 0.4 % (0.0-1.0); %Eosinophils 0.6 % (0.0-10.0); %Lymphocytes 13.1 % (21.0-51.0); %Monocytes 7.2 % (0.0-10.0); %Neutrophils 78.7 % (42.0-75.0); Hemoglobin 8.4 g/dL (14.0-18.0); Mean Corpuscular Hemoglobin 32.8 pg (27.0-31.0); Mean Corpuscular Volume 99.6 fL (78.0-98.0); Mean Platelet Volume 6.7 fL (7.4-10.4); Platelet Count 420 thou/uL (130-400); RBC Distribution Width 11.4 % (11.5-14.5); Red Blood Cell (RBC) Count 2.56 mill/uL (4.70-6.10); White Blood Cell (WBC) Count 11.6 thou/uL (4.8-10.8)
[2020-11-15 16:03] LABS: Anion Gap 11 mmol/L (10-20); BUN (Urea Nitrogen) 32 mg/dL (8.4-25.7); Calc. Creatinine Clearance 178 mL/min (70-130); Calcium 8.1 mg/dL (7.8-10.44); Carbon Dioxide 27 mmol/L (23-31); Chloride 107 mmol/L (98-107); Glucose 107 mg/dL (80-115); Magnesium 2.1 mg/dL (1.6-2.6); Phosphorus 3.4 mg/dL (2.3-4.7); Sodium 141 mmol/L (136-145)
[2020-11-15] MEDS: Donepezil HCl 10 MG TAB PO SCH (20:15)
[2020-11-15] MEDS: Atorvastatin Calcium 10 MG TAB PO SCH (20:15)
[2020-11-16] MEDS: Acetaminophen 325 MG TAB PO SCH ×3 (00:42→11:47)
--- NOTE | 2020-11-16 00:55 | PRG ---
DATE OF SERVICE: 11/16/2020 SUBJECTIVE: A 65-year-old male. Toby is seen during evening rounds. The patient is status post right hip hemiarthroplasty completed on 11/03/2020. The patient is resting comfortably in bed, sleeping in no acute distress. DISPOSITION: Pending, possible discharge tomorrow. Job ID: [id number]
[2020-11-16] MEDS: Carbidopa/Levodopa 25-100 mg Tablet PO SCH ×2 (05:31→10:28)
[2020-11-16] MEDS: Ibuprofen 600 MG TAB PO SCH (05:32)
[2020-11-16] MEDS: Polyethylene Glycol 3350 17 GM Packet PO SCH (09:37)
[2020-11-16] MEDS: Aspirin 81 mg Enteric Coated Tablet PO SCH (09:38)
[2020-11-16] MEDS: Senokot S 8.6-50 MG TAB PO SCH (09:38)
[2020-11-16 13:11] VITALS: BP 101/66; TEMP 98.1
--- NOTE | 2020-11-17 18:17 | EKG ---
Test Reason : Blood Pressure : / mmHG Vent. Rate : 072 BPM Atrial Rate : 072 BPM P-R Int : 178 ms QRS Dur : 090 ms QT Int : 380 ms P-R-T Axes : 076 -71 072 degrees QTc Int : 416 ms Sinus rhythm with Premature atrial complexes in a pattern of bigeminy Left anterior fascicular block Abnormal ECG Confirmed by SHILOH HUFFMAN ([id number]), editor farm journal SKYLAR ORTIZ ([id number]) on 11/17/2020 6:17:02 PM Referred By: Confirmed By:SHILOH Kelsey
== END 2020-11-16 13:55 | DRG 522 ==
LOC: ERS 14:44 → SJJU 16:27 → SURG A 11-11 18:15 → UNDODISIN 11-13 13:40
PROVIDERS: ADMIT Surgery; ATTEND Surgery
PROC: 0SRR0JZ Replacement of Right Hip Joint, Femoral Surface with Synthetic Substitute, Open Approach (ICD-10-PCS; principal; 2020-11-03)
DX: S72.011A Unspecified intracapsular fracture of right femur, initial encounter for closed fracture (principal); E66.2 Morbid (severe) obesity with alveolar hypoventilation; Z68.41 Body mass index [BMI] 40.0-44.9, adult; Z20.822 Contact with and (suspected) exposure to COVID-19; G20 Parkinson's disease; F02.80 Dementia in other diseases classified elsewhere, unspecified severity, without behavioral disturbance, psychotic disturbance, mood disturbance, and anxiety; M54.9 Dorsalgia, unspecified; F17.210 Nicotine dependence, cigarettes, uncomplicated; Z96.611 Presence of right artificial shoulder joint; Z98.1 Arthrodesis status; Z88.0 Allergy status to penicillin; Z88.2 Allergy status to sulfonamides; W18.30XA Fall on same level, unspecified, initial encounter; Y92.012 Bathroom of single-family (private) house as the place of occurrence of the external cause; E78.5 Hyperlipidemia, unspecified; R31.9 Hematuria, unspecified; R47.02 Dysphasia; R49.0 Dysphonia; K21.9 Gastro-esophageal reflux disease without esophagitis; I71.9 Aortic aneurysm of unspecified site, without rupture; G93.89 Other specified disorders of brain; Z51.81 Encounter for therapeutic drug level monitoring; M96.1 Postlaminectomy syndrome, not elsewhere classified; G89.4 Chronic pain syndrome
CPT/HCPCS: 36415; 70450; 70551; 71045; 72170; 80048; 80307; 81003; 82607; 82746; 83735; 84100; 85007; 85025; 85027; 87635; 93005; 95712; 95819; 95957; 96360; 96361; 99214; G0463; G0483; J0690; J1040; J1100; J1170; J1650; J1885; J2250; J2270; J2405; J2704; J3010; J3260; J3490; S0020; U0003; U0005

== ENCOUNTER 2020-12-20 10:40 | Outpatient (CLI) | payer MEDICARE | END 2020-12-20 10:41 | disposition home or self-care (01) | LOC: BICULT 10:40 | PROVIDERS: ATTEND Nurse Practitioner Family | DX: R35.1 Nocturia (principal); N28.1 Cyst of kidney, acquired | CPT/HCPCS: 76770 ==

== ENCOUNTER 2021-01-04 12:26 | Emergency (ER) | payer MEDICARE ==
[2021-01-04 14:33] LABS: #Eosinphils 0.1 thou/uL (0.0-0.7); #Lymphocytes 1.4 thou/uL (1.20-3.40); #Monocytes 0.5 thou/uL (0.11-0.59); #Neutrophils 5.9 thou/uL (1.40-6.50); %Basophils 0.2 % (0.0-1.0); %Eosinophils 0.7 % (0.0-10.0); %Lymphocytes 17.6 % (21.0-51.0); %Monocytes 6.3 % (0.0-10.0); %Neutrophils 75.1 % (42.0-75.0); Hemoglobin 10.9 g/dL (14.0-18.0); Mean Corpuscular Hemoglobin 32.2 pg (27.0-31.0); Platelet Count 268 thou/uL (130-400); RBC Distribution Width 11.5 % (11.5-14.5); Red Blood Cell (RBC) Count 3.37 mill/uL (4.70-6.10); White Blood Cell (WBC) Count 7.9 thou/uL (4.8-10.8)
[2021-01-04 14:39] LABS: ALT (SGPT) Less than 7 U/L (8-55); AST (SGOT) 15 U/L (5-34); Albumin 3.7 g/dL (3.4-4.8); Alkaline Phosphatase 122 U/L (40-110); Anion Gap 11 mmol/L (10-20); BUN (Urea Nitrogen) 27 mg/dL (8.4-25.7); Bilirubin, Total 0.3 mg/dL (0.2-1.2); Calc. Creatinine Clearance 0 mL/min (70-130); Calcium 8.9 mg/dL (7.8-10.44); Carbon Dioxide 31 mmol/L (23-31); Chloride 106 mmol/L (98-107); Globulin 2.9 g/dL (2.4-3.5); Glucose 75 mg/dL (80-115); Protein, Total 6.6 g/dL (5.8-8.1); Sodium 144 mmol/L (136-145)
[2021-01-04 15:20] LABS: Bacteria/HPF None Seen HPF (None Seen); Bilirubin Negative (Negative); Blood, Urine Negative (Negative); Clarity Clear (Clear); Glucose, Urine (Dipstick) Normal (Negative); Ketone, Urine Negative (Negative); Leukocyte Negative Leu/uL (Negative); Nitrite Negative (Negative); Protein, Urine (Dipstick) 30 mg/dL (Neg-Trace); RBC/HPF 0-3 HPF (0-3); Specific Gravity, Urine 1.032 (1.002-1.036); Squamous Epithelial None Seen HPF (0-3); Urobilinogen 3 mg/dL (Less than 2); WBC/HPF 0-3 HPF (0-3)
== END 2021-01-04 15:57 | disposition home or self-care (01) ==
LOC: ERS 12:26
DX: R53.1 Weakness (principal); R29.704 NIHSS score 4; G20 Parkinson's disease; I95.9 Hypotension, unspecified; I72.9 Aneurysm of unspecified site; F17.210 Nicotine dependence, cigarettes, uncomplicated; Z79.899 Other long term (current) drug therapy; Z79.1 Long term (current) use of non-steroidal anti-inflammatories (NSAID)
CPT/HCPCS: 70450; 71045; 80053; 81003; 81015; 84443; 84484; 85025; 93005

== ENCOUNTER 2021-01-22 15:17 | Emergency (ER) | payer MEDICARE ==
[2021-01-22 17:18] LABS: #Lymphocytes 1.5 thou/uL (1.20-3.40); #Monocytes 0.5 thou/uL (0.11-0.59); #Neutrophils 4.6 thou/uL (1.40-6.50); %Basophils 0.7 % (0.0-1.0); %Eosinophils 0.5 % (0.0-10.0); %Monocytes 7.8 % (0.0-10.0); %Neutrophils 69.1 % (42.0-75.0); Hemoglobin 12.2 g/dL (14.0-18.0); Mean Corpuscular HGB CONC 32.1 g/dL (32.0-36.0); Mean Corpuscular Hemoglobin 31.9 pg (27.0-31.0); Mean Corpuscular Volume 99.2 fL (78.0-98.0); Mean Platelet Volume 7.5 fL (7.4-10.4); Platelet Count 284 thou/uL (130-400); RBC Distribution Width 11.3 % (11.5-14.5); Red Blood Cell (RBC) Count 3.83 mill/uL (4.70-6.10); White Blood Cell (WBC) Count 6.6 thou/uL (4.8-10.8)
[2021-01-22 17:38] LABS: ALT (SGPT) Less than 7 U/L (8-55); AST (SGOT) 17 U/L (5-34); Alkaline Phosphatase 118 U/L (40-110); Anion Gap 12 mmol/L (10-20); BUN (Urea Nitrogen) 26 mg/dL (8.4-25.7); Bilirubin, Total 0.3 mg/dL (0.2-1.2); Calc. Creatinine Clearance 0 mL/min (70-130); Calcium 9.4 mg/dL (7.8-10.44); Carbon Dioxide 30 mmol/L (23-31); Chloride 104 mmol/L (98-107); Globulin 3.2 g/dL (2.4-3.5); Glucose 101 mg/dL (80-115); Lipase 24 U/L (8-78); Potassium 3.9 mmol/L (3.5-5.1); Protein, Total 7.2 g/dL (5.8-8.1); Sodium 142 mmol/L (136-145)
[2021-01-22 17:48] LABS: Magnesium 2.2 mg/dL (1.6-2.6)
[2021-01-22 18:17] LABS: Bilirubin Negative (Negative); Blood, Urine Negative (Negative); Clarity Clear (Clear); Glucose, Urine (Dipstick) Normal (Negative); Ketone, Urine 10 mg/dL (Negative); Leukocyte Negative Leu/uL (Negative); Nitrite Negative (Negative); Protein, Urine (Dipstick) 50 mg/dL (Neg-Trace); RBC/HPF 0-3 HPF (0-3); Specific Gravity, Urine 1.028 (1.002-1.036); Squamous Epithelial None Seen HPF (0-3); Urobilinogen Normal mg/dL (Less than 2); WBC/HPF 0-3 HPF (0-3)
[2021-01-22 18:19] LABS: Bacteria/HPF Rare-Few HPF (None Seen); Sperm/HPF 1+ HPF (None Seen)
== END 2021-01-22 23:37 | disposition home or self-care (01) ==
LOC: ERS 15:17
DX: G20 Parkinson's disease (principal); R53.1 Weakness; F03.90 Unspecified dementia, unspecified severity, without behavioral disturbance, psychotic disturbance, mood disturbance, and anxiety; F17.210 Nicotine dependence, cigarettes, uncomplicated
CPT/HCPCS: 70450; 71045; 80053; 81003; 81015; 82550; 83690; 83735; 84484; 85025; 93005

== ENCOUNTER 2021-03-08 12:57 | Outpatient (CLI) | payer MEDICARE | END 2021-03-08 12:58 | disposition home or self-care (01) | LOC: BICULT 12:57 | PROVIDERS: ATTEND Orthopaedic Surgery | DX: R60.0 Localized edema (principal) ==

== ENCOUNTER 2021-03-12 14:48 | Outpatient (CLI) | payer MEDICARE | END 2021-03-12 14:49 | disposition home or self-care (01) | LOC: BICCT 14:48 | PROVIDERS: ATTEND Family Medicine | DX: Z12.2 Encounter for screening for malignant neoplasm of respiratory organs (principal); F17.210 Nicotine dependence, cigarettes, uncomplicated; I77.810 Thoracic aortic ectasia; S22.31XA Fracture of one rib, right side, initial encounter for closed fracture; S42.102A Fracture of unspecified part of scapula, left shoulder, initial encounter for closed fracture | CPT/HCPCS: 71271 ==